=== PATIENT | female | born 1975 | race African-American/Black ===

== ENCOUNTER 2017-06-24 23:19 | Observation (INO) | payer BC ==
[~2017-06-24] VITALS: Ht 160 cm; Wt 75.5 kg
[2017-06-24] MEDS ORDERED: ONDANSETRON HCL INJ 2 MG/ML VIAL IV STA (23:30)
[2017-06-24] MEDS ORDERED: MORPHINE SULFATE 1 MG/ML 30ML PCA IV STA (23:30)
[2017-06-24] MEDS ORDERED: NALOXONE HCL INJ 0.4 MG/ML AMP IV PRN (23:30)
[2017-06-25] VITALS (7 sets, daily range): BP systolic 98–122; BP diastolic 55–77
[2017-06-25] MEDS ORDERED: MORPHINE SULFATE 4 MG/ML SYR IV PRN (00:45)
[2017-06-25] MEDS ORDERED: ONDANSETRON HCL INJ 2 MG/ML VIAL IV PRN (02:15)
[2017-06-25] MEDS ORDERED: PROMETHAZINE HCL (IM) 25 MG/ML VIAL IV PRN (02:15)
[2017-06-25] MEDS: SODIUM CHLORIDE 0.9% 1000ML 1,000 ML IV SCH ×2 (03:29→18:00)
[2017-06-25] MEDS: LEVOFLOXACIN 500MG/D5W 100ML IV SCH (03:31)
[2017-06-25] MEDS ORDERED: SODIUM CHLORIDE 0.9% 100 ML 100 ML ONE (03:43)
[2017-06-25] MEDS: MORPHINE SULFATE 2 MG/ML SYR IV PRN ×3 (04:58→20:07)
[2017-06-25] MEDS ORDERED: DIATRIZOATE MEGL/DIATRIZOA SOD 30 ML BTL PO ONE (10:04)
[2017-06-25] MEDS ORDERED: PANTOPRAZOLE 40 MG 10ML VIAL IV SCH (10:15)
[2017-06-25 10:16] LABS: BASOPHILS % 0.9 % (0.0-1.0); EOSINOPHILS # (AUTO) 0.2 (0.0-0.4); EOSINOPHILS % 4.6 % (0.0-6.0); HEMATOCRIT 36.9 % (34.2-44.1); HEMOGLOBIN 12.3 g/dL (12.0-16.0); LYMPHOCYTES # (AUTO) 2.4 (1.0-3.2); LYMPHOCYTES % 52.4 % (18.0-39.1); MEAN CORPUSCULAR HEMOGLOBIN 31.9 pg (28-32); MEAN CORPUSCULAR HGB CONC 33.3 g/dL (31-35); MEAN CORPUSCULAR VOLUME 95.6 fL (81-99); MONOCYTES # (AUTO) 0.5 (0.2-0.8); MONOCYTES % 11.1 % (4.4-11.3); NEUTROPHILS # (AUTO) 1.4 (2.1-6.9); PLATELET COUNT 248 x10e3/uL (140-360); RED BLOOD COUNT 3.86 x10e6/uL (3.6-5.1); RED CELL DISTRIBUTION WIDTH 12.4 % (11.7-14.4)
[2017-06-25 10:21] LABS: INR 1.13; PROTHROMBIN TIME 13.6 seconds (11.9-14.5)
[2017-06-25 10:31] LABS: ALANINE AMINOTRANSFERASE 842 IU/L (0-55); ALBUMIN 2.8 g/dL (3.5-5.0); ALBUMIN/GLOBULIN RATIO 0.7 (0.8-2.0); ALKALINE PHOSPHATASE 152 IU/L (40-150); ANION GAP 11.1 mmol/L (8-16); BILIRUBIN,DIRECT 2.3 mg/dL (0.0-0.5); BLOOD UREA NITROGEN 6 mg/dL (7-26); BUN/CREATININE RATIO 8 (6-25); CALCIUM 8.7 mg/dL (8.4-10.2); CARBON DIOXIDE 26 mmol/L (22-29); CHLORIDE 108 mmol/L (98-107); CREATININE, SERUM 0.79 mg/dL (0.57-1.11); EST GLOMERULAR FILTRATION RATE > 60 ML/MIN (60-); GLUCOSE 92 mg/dL (74-118); MAGNESIUM 1.8 MG/DL (1.3-2.1); POTASSIUM 4.1 mmol/L (3.5-5.1); SODIUM 141 mmol/L (136-145)
[2017-06-25 11:10] LABS: CLARITY,URINE CLEAR (CLEAR); COLOR,URINE YELLOW (YELLOW)
[2017-06-25 11:11] LABS: LEUKOCYTE ESTERASE ,URINE NEGATIVE (NEGATIVE); NITRITE,URINE NEGATIVE (NEGATIVE); PROTEIN,URINE DIPSTICK NEGATIVE (NEGATIVE)
[2017-06-25 11:12] LABS: BILIRUBIN,URINE 3+ (NEGATIVE); KETONES,URINE NEGATIVE (NEGATIVE); URINE UROBILINOGEN 1 mg/dL (0.2 - 1)
[2017-06-25] MEDS ORDERED: SODIUM CHLORIDE 0.9% 50ML 50 ML ONE (11:12)
[2017-06-25] MEDS ORDERED: IOPAMIDOL 370 MG/ML 200 ML INFUS..BTL INJ ONE (11:12)
[2017-06-25 11:21] LABS: EPITHELIAL CELLS,URINE RARE /LPF
[2017-06-25] MEDS ORDERED: GADOBENATE DIMEGLUMINE 1 ML IV ONE (12:02)
--- NOTE | 2017-06-25 13:36 | Diagnostic Imaging Report ---
PROCEDURE: CT ABDOMEN AND PELVIS WITH CONTRAST TECHNIQUE: The abdomen and pelvis were scanned utilizing a multidetector helical scanner from the diaphragm to the lesser trochanter after the IV administration of 100 cc of Isovue 370 and the oral administration of Gastrografin/water Coronal and sagittal multiplanar reformations were obtained. COMPARISON: None. INDICATIONS: NAUSEA, VOMITING, CONSTIPATION FINDINGS: LOWER THORAX: Subsegmental atelectasis and scarlike opacities in the lung bases. HEPATOBILIARY: No focal hepatic lesions. No biliary ductal dilatation. No radiopaque gallstones or gallbladder wall thickening. The common bile duct measures up to 5 mm in caliber. SPLEEN: No splenomegaly. PANCREAS: No focal masses or ductal dilatation. ADRENALS: No adrenal nodules. KIDNEYS/URETERS: No hydronephrosis, stones, or solid mass lesions. PELVIC ORGANS/BLADDER: Bilateral Essure tubal occlusion devices. The bladder appears unremarkable. PERITONEUM / RETROPERITONEUM: No free air or fluid. LYMPH NODES: No lymphadenopathy. VESSELS: Unremarkable. GI TRACT: No distention or wall thickening. The appendix is normal. BONES AND SOFT TISSUES: Unremarkable. IMPRESSION: No specific findings to account for the patient's symptoms. Dictated by: Brayan Davidson M.D. on 06/25/2017 at 13:38 Electronically approved by: Brayan Davidson M.D. on 06/25/2017 at 13:38
--- NOTE | 2017-06-25 15:17 | Diagnostic Imaging Report ---
PROCEDURE: MRCP WITH AND WITHOUT CONTRAST TECHNIQUE: Multisequence, multiplanar MRI/MRCP of the abdomen before and after the intravenous administration of 14 mL of Multihance. Heavily T2 weighted MRCP images were obtained of the biliary tree and displayed in thin and thick slab formats. COMPARISON: Same day CT of the abdomen and pelvis. Outside hospital ultrasound of the abdomen from 06/25/2017. INDICATIONS: Not provided. FINDINGS: LOWER THORAX: Unremarkable LIVER: No hepatic signal abnormality. No focal hepatic lesions. BILIARY: The gallbladder is full of stones. No gallbladder wall thickening. The common bile duct is normal in caliber and there are no filling defects within the duct. PANCREAS: No mass or ductal dilatation. SPLEEN: No splenomegaly. ADRENALS: No nodules. KIDNEYS: No hydronephrosis or mass in the imaged portion of the kidneys. PERITONEUM / RETROPERITONEUM: No upper abdominal free fluid. LYMPH NODES: No upper abdominal lymphadenopathy. VESSELS: Unremarkable. BONES AND SOFT TISSUES: Unremarkable. IMPRESSION: 1. The gallbladder is full of stones. There is no gallbladder wall thickening or pericholecystic fluid. 2. The common bile duct is normal in caliber. There is no evidence of choledocholithiasis. Dictated by: Brayan Davidson M.D. on 06/25/2017 at 15:18 Electronically approved by: Brayan Davidson M.D. on 06/25/2017 at 15:18
[2017-06-25] MEDS ORDERED: SINCALIDE 3 MCG/VIAL INJ ONE (15:22)
--- NOTE | 2017-06-25 17:04 | Diagnostic Imaging Report ---
EXAM: HIDA Scan with Morphine Challenge INDICATION: 42 F with abdominal pain x 3 days Report: Following the administration of 5.4 mCi of Tc-99m mebrofenin, dynamic images of the abdomen in the anterior projection were obtained through 70 minutes. Morphine sulfate 4 mg was administered intravenously and additional images were obtained through 30 minutes. Perfusion of the liver is normal. Extraction of tracer from the blood pool by the liver parenchyma is normal. Tracer appears promptly with in the biliary tract. Tracer is seen in the small bowel by 25 minutes post injection of the tracer. The gallbladder does not fill during the initial 70 minutes of imaging but does fill following administration of morphine. Impression: Filling of the gallbladder excludes acute cystic duct obstruction/acute cholecystitis. Signed by: Dr. Gaviota Weston M.D. on 06/25/2017 5:00 PM
[2017-06-26] MEDS: MORPHINE SULFATE 2 MG/ML SYR IV PRN (01:22)
[2017-06-26] MEDS: LEVOFLOXACIN 500MG/D5W 100ML IV SCH (02:21)
[2017-06-26] MEDS: SODIUM CHLORIDE 0.9% 1000ML 1,000 ML IV SCH ×2 (02:21→02:29)
== END 2017-06-26 04:14 | disposition left against medical advice (07) ==
LOC: FSED 23:19 → IMCU 06-25 02:48
PROVIDERS: ADMIT Internal Medicine; ATTEND Internal Medicine
DX: K80.51 Calculus of bile duct without cholangitis or cholecystitis with obstruction (principal); R10.11 Right upper quadrant pain; R11.2 Nausea with vomiting, unspecified
CPT/HCPCS: 36415; 74177; 74183; 76705; 78227; 80053; 80076; 81001; 81003; 82150; 83605; 83690; 83735; 85025; 85610; 99284; A9537; G0378 ×2; J1956 ×2; J2270 ×3; J2405; J2550; J2805; J7030 ×2; Q9967